=== PATIENT | female | born 1950 | race Caucasian/White ===

== ENCOUNTER → 2016-09-12 | Outpatient (CLI) | payer OTHER ==
[~2016-09-12] MED LIST: ASCA500 PO; ASPCH81X PO; ATOR-24 PO; CALC-485 PEG; CYAN500T PO; ESCI1TAB10 PO; LEVO125T72 PO; LOSA100T26 PO; MELO15TA4 PO; MULT-506 PO; PANT40TA PO; POTA10CA28 PO; RANI300T2 PO; [UNRECOGNIZED DRUG - CODE] PO
[2016-09-12 18:21] LABS: BASO % 0.8 %; BASO ABS # 0.06 K/uL (0-0.2); COMPLETE YES; EOS % 1.7 %; HEMATOCRIT 36.3 % (37-47); IG% 0.1 %; LYMPH ABS # 1.79 K/uL (1.2-3.4); MEAN CELL VOLUME 82.9 fL (80-100); MEAN CORPUSCULAR HEMOGLOBIN 27.2 pg (25-34); MEAN CORPUSCULAR HGB CONC 32.8 g/dl (32-36); MEAN PLATELET VOLUME 10.5 fL (7.4-10.4); MONO % 9.9 %; NEUT % 62.5 %; PLATELET COUNT 328 K/uL (130-400); RED BLOOD COUNT 4.38 M/uL (4.2-5.4); WHITE BLOOD COUNT 7.17 K/uL (4.8-10.8)
== END | disposition home or self-care (01) ==
LOC: C.LABMFLN 09:39
PROVIDERS: ATTEND Family Medicine
DX: J02.9 Acute pharyngitis, unspecified (principal); R53.83 Other fatigue

== ENCOUNTER 2016-09-22 10:25 | Emergency (ER) | payer OTHER ==
[~2016-09-22] VITALS: Ht 157.5 cm; Wt 86.0 kg
[2016-09-22 10:27] VITALS: TEMP 36.5; Ht 157.5 cm; Wt 86.0 kg
--- NOTE | 2016-09-22 10:55 | EMERGENCY ROOM VISIT NOTE ---
History Report prepared by Shannonibpaolo: Sindy Jessica Under the Supervision of: Dr. Gonzalo Jones D.O. First contact with patient: 10:33 Chief Complaint: EYE ASSESSMENT Stated Complaint: EYE PAIN History of Present Illness The patient is a 66 year old female who presents to the Emergency Room with complaints of persistent discomfort in the right eye which started yesterday afternoon. Last night, she noticed that the outer half of her eye was red and this morning, her whole eye was red. There is also a bump which she is concerned about. She denies doing any heavy lifting. She does not recall sneezing or coughing. She denies any vision changes. She is on medications for hypertension. Source of History: patient Onset: yesterday afternoon Position: eye (right) Timing: other (persistent) Note: Pt denies changes in vision. Review of Systems See HPI for pertinent positives & negatives. A total of 10 systems reviewed and were otherwise negative. Past Medical & Surgical Medical Problems: (1) Hypertension Family History Patient reports no known family medical history. Social History Smoking Status: Former Smoker Marital Status: in relationship Housing Status: lives with family Physical Exam Vital Signs Date Time Temp Pulse Resp B/P Pulse Ox O2 Delivery O2 Flow Rate FiO2 09/22/16 10:27 36.5 70 18 163/78 95 Room Air Physical Exam CONSTITUTIONAL/VITAL SIGNS: Reviewed / noted above. GENERAL: Non-toxic in appearance. INTEGUMENTARY: Warm, dry, and [place]. HEAD: Normocephalic. EYES: Redness of the sclera with a tiny clot at the ten o'clock position of the sclera consistent with BRICE. ENT/OROPHARYNX: clear and moist. LYMPHADENOPATHY/NECK: Is supple without lymphadenopathy or meningismus. RESPIRATORY: Lungs clear and equal. CARDIOVASCULAR: Regular rate and rhythm. GI/ABDOMEN: Soft and nontender. No organomegaly or pulsatile mass. No rebound or guarding. Normal bowel sounds. EXTREMITIES: Warm and well perfused. BACK: No CVA tenderness. NEUROLOGICAL: Intact without focal deficits. PSYCHIATRIC: normal affect. MUSCULOSKELETAL: Normally developed with good muscle tone. Medical Decision & Procedures ED Course 1034: Previous medical records were reviewed. The patient was evaluated in room B8. A complete history and physical examination was performed. 1048: I reevaluated the patient. She is resting comfortably. I discussed the treatment plan with her. She verbalized understanding and agreement. She will be discharged home. Medical Decision Differential diagnoses: infection, trauma, spontaneous bleed. This is a 66-year-old female who presents to the ED with a chief complaint of redness in the right eye. The patient states that she noticed it yesterday. It was initially on the right/temporal region and subsequently moved diffusely to the entire eye this morning. She denies any specific trauma or injury. She states that she was seen at urgent care and sent here. Her blood pressure at urgent care was 130 systolic. It was a little higher here. She states that she does take medication for blood pressure. He states that she has been packing for a trip but otherwise does not recall any specific activity that may be increased pressure in her eye to cause a blood vessel to break. Her exam reveals findings consistent with that of a subacute conjunctival hemorrhage. There is a small clot /vessel in the 11 o'clock position of the sclera that appears to be the origination of the bleed. X-ray of the motion is intact. There is no abnormalities with regards to the anterior chamber or iris. Her vision is normal. The patient reports mild discomfort on the lateral aspect of the sclera. The patient is felt to have the subconjunctival hemorrhage. She was told to follow-up with her data center solutions architect for recheck. She is felt to be stable for discharge. Impression Primary Impression: Subconjunctival hemorrhage of right eye Scribe Attestation The scribe's documentation has been prepared under my direction and personally reviewed by me in its entirety. I confirm that the note above accurately reflects all work, treatment, procedures, and medical decision making performed by me. Departure Information Dispostion Home / Self-Care Referrals Radames Toledo M.D. (PCP) Patient Instructions My [facility], Subconjunctival Hemorrhage Additional Instructions Follow-up with your inspector eyeglass frames for recheck when you return to [facility]. Return for any concerns or worsening.
[2016-09-22 11:03] VITALS: BP 183/96; PULSE 58; O2SAT 96
[2016-09-22] MEDS ORDERED: PANT40TA PO (11:09)
[2016-09-22] MEDS ORDERED: POTA10CA28 PO (11:09)
[2016-09-22] MEDS ORDERED: ESCI1TAB10 PO (11:09)
[2016-09-22] MEDS ORDERED: CYAN500T PO (11:09)
[2016-09-22] MEDS ORDERED: ASCA500 PO (11:09)
[2016-09-22] MEDS ORDERED: LEVO125T72 PO (11:09)
[2016-09-22] MEDS ORDERED: LOSA100T26 PO (11:09)
[2016-09-22] MEDS ORDERED: RANI300T2 PO (11:09)
[2016-09-22] MEDS ORDERED: ATOR-24 PO (11:09)
[2016-09-22] MEDS ORDERED: MULT-506 PO (11:09)
[2016-09-22] MEDS ORDERED: CALC-485 PEG (11:09)
[2016-09-22] MEDS ORDERED: ASPCH81X PO (11:10)
[2016-09-22] MEDS ORDERED: MELO15TA4 PO (11:10)
[2016-09-22] MEDS ORDERED: [UNRECOGNIZED DRUG - CODE] PO (11:10)
== END 2016-09-22 11:05 | disposition home or self-care (01) ==
LOC: C.EDB 10:27
DX: H11.31 Conjunctival hemorrhage, right eye (principal); I10 Essential (primary) hypertension; Z87.891 Personal history of nicotine dependence

== ENCOUNTER → 2016-11-19 | Outpatient (CLI) | payer OTHER ==
[~2016-11-19] MED LIST changes: -LOSA100T26 PO; +LOSA100T33 PO
[2016-11-19 14:27] LABS: ALT/SGPT 26 U/L (12-78); AST/SGOT 13 U/L (15-37); BLOOD UREA NITROGEN 31 mg/dl (7-18); CALCIUM 8.6 mg/dl (8.5-10.1); CARBON DIOXIDE 27 mmol/L (21-32); CHLORIDE 104 mmol/L (98-107); GLUCOSE 88 mg/dl (70-99); POTASSIUM 3.8 mmol/L (3.5-5.1); SODIUM 140 mmol/L (136-145)
[2016-11-19 14:30] LABS: CHOLESTEROL 250 mg/dl (0-200); CHOLESTEROL/HDL RATIO 4.1; HDL CHOLESTEROL 61 mg/dl; LDL CHOLESTEROL CALCULATED 154 mg/dl; TRIGLYCERIDES 176 mg/dl (0-150); VERY LOW DENSITY LIPOPROT CALC 35 mg/dl
== END | disposition home or self-care (01) ==
LOC: C.LABMFLN 08:21
PROVIDERS: ATTEND Family Medicine
DX: I10 Essential (primary) hypertension (principal); E78.5 Hyperlipidemia, unspecified; E03.9 Hypothyroidism, unspecified; E87.6 Hypokalemia; D64.9 Anemia, unspecified; M17.11 Unilateral primary osteoarthritis, right knee

== ENCOUNTER → 2017-08-07 | Outpatient (CLI) | payer OTHER | END | disposition home or self-care (01) | LOC: C.LABMFLN 10:14 | PROVIDERS: ATTEND Family Medicine | DX: R39.15 Urgency of urination (principal) ==

== ENCOUNTER → 2017-09-09 | Outpatient (CLI) | payer OTHER ==
[~2017-09-09] MED LIST changes: +MELO-84 PO; -MELO15TA4 PO
[2017-09-09 12:30] LABS: BASO % 0.6 %; BASO ABS # 0.04 K/uL (0-0.2); EOS % 2.6 %; EOS ABS # 0.16 K/uL (0-0.5); HEMATOCRIT 37.6 % (37-47); HEMOGLOBIN 12.3 g/dL (12.0-16.0); IG# 0.01 K/uL (0.00-0.02); LYMPH % 31.7 %; LYMPH ABS # 1.99 K/uL (1.2-3.4); MEAN CELL VOLUME 87.4 fL (80-100); MEAN CORPUSCULAR HEMOGLOBIN 28.6 pg (25-34); MEAN CORPUSCULAR HGB CONC 32.7 g/dl (32-36); MEAN PLATELET VOLUME 10.1 fL (7.4-10.4); MONO % 8.8 %; MONO ABS # 0.55 K/uL (0.11-0.59); NEUT % 56.1 %; NEUT ABS # 3.52 K/uL (1.4-6.5); PLATELET COUNT 297 K/uL (130-400); RED CELL DISTRIBUTION WIDTH CV 14.1 % (11.5-14.5); RED CELL DISTRIBUTION WIDTH SD 45.4 fL (36.4-46.3); WHITE BLOOD COUNT 6.27 K/uL (4.8-10.8)
[2017-09-09 13:14] LABS: ALBUMIN 3.4 gm/dl (3.4-5.0); BLOOD UREA NITROGEN 19 mg/dl (7-18); CALCIUM 8.4 mg/dl (8.5-10.1); CARBON DIOXIDE 32 mmol/L (21-32); CHOLESTEROL 246 mg/dl (0-200); CREATININE 1.02 mg/dl (0.60-1.20); GLUCOSE 93 mg/dl (70-99); POTASSIUM 3.1 mmol/L (3.5-5.1); SODIUM 138 mmol/L (136-145)
[2017-09-09 13:26] LABS: ALKALINE PHOSPHATASE 121 U/L (45-117); ALT/SGPT 29 U/L (12-78); AST/SGOT 17 U/L (15-37); LDL CHOLESTEROL CALCULATED 166 mg/dl; TOTAL PROTEIN 6.8 gm/dl (6.4-8.2)
== END | disposition home or self-care (01) ==
LOC: C.LABMFLN 10:01
PROVIDERS: ATTEND Family Medicine
DX: I10 Essential (primary) hypertension (principal); E78.5 Hyperlipidemia, unspecified; E03.9 Hypothyroidism, unspecified; E53.8 Deficiency of other specified B group vitamins; D64.9 Anemia, unspecified; R41.3 Other amnesia

== ENCOUNTER → 2017-10-04 | Outpatient (CLI) | payer OTHER | END | disposition home or self-care (01) | LOC: C.LABMFLN 14:46 | PROVIDERS: ATTEND Family Medicine | DX: E87.6 Hypokalemia (principal) ==

== ENCOUNTER → 2017-11-13 | Outpatient (CLI) | payer OTHER ==
[2017-11-13 13:16] LABS: POTASSIUM 3.3 mmol/L (3.5-5.1)
== END | disposition home or self-care (01) ==
LOC: C.LABMFLN 09:49
PROVIDERS: ATTEND Family Medicine
DX: E87.6 Hypokalemia (principal); E03.9 Hypothyroidism, unspecified

== ENCOUNTER → 2017-11-25 | Outpatient (CLI) | payer OTHER ==
[2017-11-25 18:28] LABS: BLOOD UREA NITROGEN 18 mg/dl (7-18); CREATININE 0.93 mg/dl (0.60-1.20); POTASSIUM 3.4 mmol/L (3.5-5.1)
== END | disposition home or self-care (01) ==
LOC: C.LABMFLN 11:01
PROVIDERS: ATTEND Family Medicine
DX: E87.6 Hypokalemia (principal); H93.19 Tinnitus, unspecified ear; H91.90 Unspecified hearing loss, unspecified ear

== ENCOUNTER → 2018-01-31 | Outpatient (CLI) | payer OTHER | END | disposition home or self-care (01) | LOC: C.LABMFLN 09:48 | PROVIDERS: ATTEND Family Medicine | DX: E87.6 Hypokalemia (principal) ==

== ENCOUNTER 2025-01-13 19:13 | Observation (INO) ==
[2025-01-13] MEDS ORDERED: NITROGLYCERIN SL 0.4 MG/TAB TAB SL PRN (21:04)
[2025-01-13] MEDS ORDERED: ACETAMINOPHEN 325 MG TAB PO PRN (21:04)
[2025-01-13] MEDS ORDERED: ONDANSETRON INJ 2 MG/ML 2 ML VIAL IV PRN (21:04)
--- NOTE | 2025-01-13 21:31 | History & Physical Report ---
Date of Service January 13, 2025 Assessment & Plan (1) NSTEMI (non-ST elevated myocardial infarction): (2) HTN (hypertension) with goal to be determined: (3) Hyperlipidemia: (4) Hypothyroidism: (5) Depression: Plan Gerri is a 74-year-old female with a past medical history of hypertension, HLD, nontuberculosis mycobacterial infection, GERD, depression, hypertension, vitamin B12 deficiency and hypothyroidism who presents to [facility] after transfer from [facility] for concerns of non-STEMI. #NSTEMI Continue heparin drip pending Anti-Xa level Trend troponin every 6 hours Consult cardiologyI spoke to Dr. Everett and Dr. Merritt prior to excepting transfer Keep n.p.o. EKG upon arrival A.m. CBC, BMP and fasting lipid panel #HTN | HLD Hold losartan-HCTZ and K supplementation pending labs Continue statin and metoprolol #GERD Continue protonix and PPI BID #Mental Health Continue Wellbutrin #Hypothryoid Was told to change her dose from 150 to 137 but has not gone to pick it up yet will continue 137mcq dose while inpatient Dispo: admit to PCU DVT proh: Heparin gtt Admission and Anticipated Discharge Date Admission Date: January 13, 2025 History of Present Illness Chief Complaint: chest pain Primary Care Provider: Radames Toledo MD Gerri is a 74-year-old female with a past medical history of hypertension, HLD, nontuberculosis mycobacterial infection, GERD, depression, hypertension, vitamin B12 deficiency and hypothyroidism who presents to [facility] after transfer from [facility] for concerns of non-STEMI. Chest pain started around 1:00 in the afternoon while she was vacuuming. Her pain radiated to the jaw at this time. Did also feel diaphoretic and near syncopal. She sat down thinking the chest pain would go away and it did not and at that time she called the ambulance. Was given aspirin 324 mg and route and chest pain improved. Remained chest pain-free in the outside ER. Per outside ER provider, initial EKG was sinus bradycardia at a rate of 55 bpm, no ST changes. Initial high-sensitivity Trope was 9 then 22 then 26. They reached out to the rail signal worker who recommended transfer for cardiac catheterization and patient was started on a heparin drip. Upon arrival to [facility], she remains chest pain free. Does report that she had a similar episode about 2 weeks ago when she was trying to get out of her truck. She was at her [facility] soft[facility] tournament and did not want to seek medical care in the facility. Symptoms lasted for about 20 minutes. Denies associated shortness of breath. She was recently getting treated for nontuberculosis mycobacterial infection but finished those 3 antibiotics a few weeks ago. She had a lot of sickness with these medications and decreased activity. Allergies Allergy/AdvReac Type Severity Reaction Status Date / Time sulfamethoxazole Allergy Intermediate HIVES Verified 01/11/25 11:02 trimethoprim Allergy Intermediate HIVES Verified 01/11/25 11:02 Home Medications Medication Instructions Recorded Confirmed Type ascorbate calcium (vitamin C) 500 500 mg PO QPM 02/01/19 01/11/25 History mg capsule fluticasone propionate 50 2 spray intranasal DAILY PRN nasal 05/10/20 01/13/25 Rx mcg/actuation nasal congestion #15.8 mL spray,suspension meclizine 25 mg tablet 25 mg PO TID PRN dizziness #90 tabs 10/28/20 01/13/25 Rx albuterol sulfate 90 mcg/actuation 2 puff inhalation QID PRN 09/11/21 01/11/25 Rx aerosol inhaler (ProAir HFA) shortness of breath or wheezing #8.5 grams aspirin 81 mg capsule 81 mg PO QPM 09/04/23 01/13/25 History calcium 500 mg (as 1 tab PO QPM 09/04/23 01/13/25 History carbonate)-vitamin D3 10 mcg (400 unit) tablet echinacea 500 mg capsule 500 mg PO QPM 09/04/23 01/11/25 History mecobalamin (vitamin B12) 1,000 1,000 mcg sublingual QPM 09/04/23 01/13/25 History mcg disintegrating tablet,sublingual multivitamin (Daily Multi-Vitamin 1 tab PO QPM 09/04/23 01/13/25 History tablet) atorvastatin 80 mg tablet 80 mg PO QPM #90 tabs 11/27/23 01/13/25 Rx ondansetron 4 mg disintegrating 4 mg PO Q8H PRN nausea and 03/27/24 01/13/25 Rx tablet vomiting #14 tabs bupropion HCl 150 mg 24 hr tablet, 150 mg PO QAM #90 tabs 08/12/24 01/13/25 Rx extended release bupropion HCl 300 mg 24 hr tablet, 300 mg PO QAM #90 tabs 08/12/24 01/13/25 Rx extended release duloxetine 60 mg capsule,delayed 60 mg PO BID #180 caps 11/13/24 01/13/25 Rx release pantoprazole 40 mg tablet,delayed 40 mg PO BID #180 tabs 12/16/24 01/13/25 Rx release famotidine 40 mg tablet 40 mg PO BID #180 tabs 01/01/25 01/13/25 Rx levothyroxine 137 mcg tablet 137 mcg PO DAILY #90 tabs 01/13/25 01/13/25 Rx amlodipine 5 mg tablet 5 mg PO DAILY #30 tabs 01/14/25 Rx ezetimibe 10 mg tablet (Zetia) 10 mg PO DAILY #30 tabs 01/14/25 Rx losartan 100 mg tablet 100 mg PO DAILY #30 tabs 01/14/25 Rx metoprolol succinate 25 mg 12.5 mg (1/2 x 25 mg) PO QAM #90 01/14/25 01/13/25 Rx tablet,extended release 24 hr tabs nitroglycerin 0.4 mg sublingual 0.4 mg sublingual Q5M PRN Chest 01/14/25 Rx tablet (Nitrostat) Pain #30 tabs Past Med/Surg History Problem List (Updated 01/13/25 @ 21:42 by Lillie Yuen PA-C) NSTEMI (non-ST elevated myocardial infarction) Nontuberculous mycobacterial infection Encounter for pre-operative examination Multiple pulmonary nodules Bronchiectasis Abnormal CT scan of lung Lung nodule Low back pain Asymptomatic age-related postmenopausal state Anemia Medicare annual wellness visit, subsequent Lower abdominal pain Abnormal ultrasound of abdomen Rib pain on right side Epigastric abdominal pain per pt is intermittent "I get a lot of heartburn" Atypical chest pain pt denies any chest pain at this time--resolved Benign essential hypertension Intermittent palpitations Vitamin B12 deficiency (Acute) Osteoarthritis of right knee (Acute) Menieres disease (Acute) Hypothyroidism (Acute) Hyperlipidemia (Acute) HTN (hypertension) with goal to be determined (Acute) Gastroesophageal reflux disease with ulceration (Acute) Depression (Acute) Medical History Shortness of breath on exertion Hearing deficit Lower abdominal pain Multiple pulmonary nodules Abnormal ultrasound of abdomen Rib pain on right side Epigastric abdominal pain Benign essential hypertension Intermittent palpitations Depression Gastroesophageal reflux disease with ulceration HTN (hypertension) with goal to be determined Hyperlipidemia Hypothyroidism Menieres disease Osteoarthritis of right knee Vitamin B12 deficiency Surgical History History of dilatation and curettage History of esophagogastroduodenoscopy (EGD) History of tooth extraction H/O colonoscopy History of tubal ligation History of hysterectomy History of carpal tunnel release History of cardiac cath Family History Father Prostate cancer Heart disease Kidney disease Hypertension Parkinson disease Mother Diabetes Stroke Family/Other Family history of reaction to anesthesia Other Bladder cancer Social History Smoking Status: Former smoker Tobacco Type: Cigarettes Age Started Using Tobacco: 18; Age Quit Using Tobacco: 34; packs per day: 1; Second Hand Exposure: No; Do You Dip or Chew Tobacco: No; Hx Alcohol Use: Yes Alcohol type: wine Hx Substance Use: No Preferred Language: Latvian Communication Ability: Effective Visual Impairment: No Limitations Hearing Ability: Use of Hearing Aid Day Care Center Director Required: No Beliefs That Will Affect Care: None marital status: Current Living Situation: Spouse Feels Safe at Home: Yes Childhood Exposure to Second-Hand Smoke: Yes Seatbelt Use: always Sunscreen Use: Yes Assistive Devices: None Review of Systems Review of Systems: All systems reviewed & are unremarkable except as noted in Subjective Physical Exam Physical Exam: General: NAD, VS as above Resp: normal respiratory effort, lungs clear to auscultation CV: RRR, no murmur, Abd: normal bowel sounds, non tender, no hepatosplenomegaly Extremities: Moves all extremities, no pitting LE edema Neuro: A&O x3, Skin: intact, no lesions noted Supervising Physician Co-Signing Physician Notes During face to face encounter, I obtained a history and physical examination, discussed plan of care with patient and answered any questions. I discussed plan of care with FRANCHESCA Yuen. I reviewed above note and agree with it except for the following: Patient will be admitted for concern of a NSTEMI. Patient has some atypical features, may require cardiac cath. Will consult cards. will trend troponin PG Care Time/CCT Total # of Minutes Spent Total Time Spent with Patient: Total time spent is greater than 50% in coordination of care (as documented) at patient's floor/unit and/or counseling patient: Coding Level of Care Code 97352 INT INP/OBS CARE 3/75MIN Diagnoses NSTEMI (non-ST elevated myocardial infarction) I21.4 HTN (hypertension) with goal to be determined I10 Hyperlipidemia E78.5 Hypothyroidism E03.9 Depression F32.9
[2025-01-13 21:49] LABS: Hematocrit (blood only) 34.8 % (37.0-47.0); Hemoglobin 11.8 g/dl (12.0-16.0); Immature Granulocytes # (auto) 0.01 K/uL (0.01-0.20); Immature Granulocytes % (auto) 0.2 %; Mean Corpuscular Hemoglobin 28.8 pg (25.0-34.0); Mean Corpuscular Volume 84.9 fL (80.0-100.0); Platelet Count 209 K/uL (130-400); RDW Standard Deviation 42.5 fL (36.4-46.3); Red Blood Count 4.10 M/uL (4.20-5.40); White Blood Count 5.81 K/ul (4.8-10.8)
[2025-01-13 22:06] LABS: Anion Gap 7.0 (3-11); Blood Urea Nitrogen 18.0 mg/dl (6-23); Calcium 8.7 mg/dl (8.6-10.3); Carbon Dioxide 27.0 mmol/L (21-32); Chloride 105.0 mmol/L (98-107); Creatinine Clr Calc Pharmacy 50.4 ml/min; Glucose 88.0 mg/dl (70-99(Fasting)); Magnesium 2.0 mg/dl (1.7-2.4); Potassium 3.6 mmol/L (3.5-5.1); Sodium 139.0 mmol/L (136-145)
[2025-01-13 22:12] LABS: ANTI-Xa, UFH(UnfractionatedHep 0.53 IU/ml (0.3-0.7)
[2025-01-13] MEDS: HEPARIN 25000 UNIT/500 ML D5W 25,000 UNITS/500 ML BAG IV SCH (22:12)
[2025-01-13] MEDS: ATORVASTATIN 40 MG TAB PO SCH (22:13)
[2025-01-13] MEDS: FAMOTIDINE 40 MG TABLET PO SCH (22:13)
[2025-01-13] MEDS: Heparin IV Adult Wt-Based Standard *NO* INITIAL Bolus Protocol IV SCH (22:13)
[2025-01-14] MEDS: LEVOTHYROXINE SODIUM 137 MCG TABLET PO SCH (06:14)
[2025-01-14 06:33] LABS: Hematocrit (blood only) 33.6 % (37.0-47.0); Hemoglobin 11.2 g/dl (12.0-16.0); Mean Corpuscular Hemoglobin 28.8 pg (25.0-34.0); Mean Corpuscular Volume 86.4 fL (80.0-100.0); Platelet Count 204 K/uL (130-400); RDW Standard Deviation 43.0 fL (36.4-46.3); Red Blood Count 3.89 M/uL (4.20-5.40); White Blood Count 5.83 K/ul (4.8-10.8)
[2025-01-14 06:55] LABS: Anion Gap 4.0 (3-11); Blood Urea Nitrogen 19.0 mg/dl (6-23); Calcium 8.5 mg/dl (8.6-10.3); Carbon Dioxide 31.0 mmol/L (21-32); Chloride 106.0 mmol/L (98-107); Cholesterol 175.0 mg/dl (0-200); Creatinine Clr Calc Pharmacy 50.0 ml/min; Glucose 102.0 mg/dl (70-99(Fasting)); HDL Cholesterol 62.0 mg/dl; Potassium 3.7 mmol/L (3.5-5.1); Sodium 141.0 mmol/L (136-145); Triglycerides 47.0 mg/dl (0-150)
[2025-01-14 07:09] LABS: ANTI-Xa, UFH(UnfractionatedHep 0.57 IU/ml (0.3-0.7)
[2025-01-14 07:43] VITALS: TEMP 98.2
--- NOTE | 2025-01-14 09:46 | Pre Anesthesia Assessment ---
Date of Service January 14, 2025 Pre Sedation Assessment Vital Signs Temp Pulse Pulse Pulse Resp BP Pulse Ox 01/14/25 07:42 98.2 F 57 L 18 120/73 99 01/14/25 03:04 97.7 F 59 L 16 113/66 98 01/13/25 21:57 60 01/13/25 21:27 59 L 01/13/25 21:00 01/13/25 21:00 99.5 F 62 16 171/88 H 95 O2 Del Method 01/14/25 07:42 Room Air 01/14/25 03:04 Room Air 01/13/25 21:57 01/13/25 21:27 01/13/25 21:00 Room Air 01/13/25 21:00 Room Air Cardiovascular + regular rate Respiratory + respiratory effort normal Pre-Sedation Airway Assessment Smoking Status: Former smoker Hx Sleep Apnea: No Hx Difficult Intubation: No Short, Thick Neck: No Thyromental Distance: > or= 3.5 Finger Breadths Oral Cavity: + Dental Abnormalities Mallampati Class: II ASA: ASA3 Procedure Planning Contraindications for Sedation: none Current Medications Reviewed: Yes Notes The planned sedation has been discussed with the patient. Informed Consent was obtained. I have identified the patient, determined the appropriateness of sedation and have assessed the patient immediately prior to the procedure. All medicine(s) and interventions are by my order.
[2025-01-14] MEDS: MIDAZOLAM HCL 1 MG/ML 2ML VIAL ONE (10:25)
[2025-01-14] MEDS: IODIXANOL (VISIPAQUE) 320 MG/ML 100ML IV ONE (10:26)
[2025-01-14] MEDS: OPTIRAY 350 ONE (10:26)
[2025-01-14] MEDS: HEPARIN (PORCINE) 1000 UNIT/ML 10 ML (CATH LAB USE ONLY) ONE (10:26)
[2025-01-14] MEDS: NITROGLYCERIN/D5W 100MCG/ML 20ML SYR ONE (10:27)
[2025-01-14] MEDS: niCARdipine 2,000 MCG/20 ML SYR ONE (10:27)
--- NOTE | 2025-01-14 10:33 | Post Anesthesia Assessment ---
Date of Service January 14, 2025 Post Sedation Assessment Vital Signs Temp Pulse Pulse Pulse Resp BP BP 01/14/25 09:48 59 L 16 128/53 L 01/14/25 07:42 98.2 F 57 L 18 120/73 01/14/25 03:04 97.7 F 59 L 16 113/66 01/13/25 21:57 60 01/13/25 21:27 59 L 01/13/25 21:00 01/13/25 21:00 99.5 F 62 16 171/88 H Pulse Ox O2 Del Method 01/14/25 09:48 96 Room Air 01/14/25 07:42 99 Room Air 01/14/25 03:04 98 Room Air 01/13/25 21:57 01/13/25 21:27 01/13/25 21:00 Room Air 01/13/25 21:00 95 Room Air Recovery Score Activity: Moves 4 extremities Respiration: Deep Breath/Cough Circulation: +/-20% PreAnes Value Consciousness: Fully Awake Oxygen Saturation: O2 needed for >90% Discharge Sedation Level of Care: Fast Track Phase II Post Sedation Plan On clinical assessment, the patient appears to have tolerated the sedation without complications. Patient is recovering as anticipated. Patient will continue to be monitored by nursing and may be discharged when sedation discharge criteria are met per below protocol. Upon Completions of procedure up to 15 minutes continue every 5 minute vital signs and the P.A.R. score; then discharge to a Phase I or Fast Track to Phase II per the following guidelines: * Discharge Patient to appropriate Phase II area if PAR is 8 or greater or return to pre- procedure baseline. The post - procedure orders will be as directed. * If PAR score is less than 8 or not return to pre-procedure baseline then patient will follow Phase I monitoring till PAR is reached for Phase II. The Phase I may be done in procedure room or may call to secure a Phase I area. * If naloxone or flumazenil are used for reversal, hold in Phase I for continued monitoring from when last reversal dose was given for a minimum of 60 minutes or longer pending the nurse and/or physician discretion of patient condition before discharge to Phase II. Please call the Sedation Physician to re-evaluate and complete post-note for discharge to Phase II area. Do NOT discharge from procedure sedation or Phase 1 until post- sedation evaluation note is complete by procedure /sedation MD Sedation Discharge Instructions to be given to the patient at discharge to home.
--- NOTE | 2025-01-14 10:48 | Cardiac Catheterization ---
[facility] Data: Project Construction Manager Cardiac Status Clinical evaluation leading to the procedure CAD Presenation: Non STEMI Diagnostic Physicians Name: Pedro Luis Merritt MD Closure Device Recommendations: Medical Therapy and/or Counseling Cardiac Cath Procedure Full Procedure Date January 14, 2025 Pre-Procedure Diagnosis Pre-Procedure Diagnosis: Non STEMI AUC Score AUC Score: 7 Post-Procedure Diagnosis Post-Procedure Diagnosis: Mild CAD Procedure(s) Performed Procedure(s) Performed: Coronary Angiography, Left Heart Cath and Ultrasound Guided Vascular Access Signal Repairer Pedro Luis Merritt MD [employer] Roofer(s) Marisa Estimated Blood Loss Estimated Blood Loss: 5 Medication(s) Medication(s): Fentanyl, Heparin, Lidocaine 1%, Nicardipine, Nitroglycerin and Versed Summary of Findings Indication: Chest pain, minimally elevated troponin Access: 6 Fr slender right radial artery under ultrasound guidance Catheters: [place] Findings: LM -normal caliber, no significant disease LAD -small caliber, proximal luminal regularities. Distal vessel very small and tapers prior to apex. D1 without significant disease. Circumflex -small caliber, 30-40% ostial stenosis, remainder of small AV groove circumflex without significant disease. High OM1 ostium not well-visualized but appears to have 40% ostial stenosis. Midportion of bifurcating OM1 with 20 to 30% disease. RCA -dominant, large caliber, 20-30% mid segment stenosis, distal vessel with luminal irregularities. RPDA, right posterior lateral branch without significant disease. LVEDP -21 Arterial Closure: TR band Summary: 1. Mild to moderate nonobstructive coronary artery disease - 30-40% ostial small circumflex, 40% high OM1 20-30% mid RCA 2. Elevated intracardiac filling pressure (LVEDP 21) Recommendations: No acute or high risk findings to explain patient's recent symptoms. May have some component of vasospastic versus microvascular angina contributing to [place] Check echocardiogram Continued ASCVD risk factor modification Consider trial of nitrates/CCB. Hemodynamics Rest Ao:: 155/68/103 Final Ao: 187/81/126 LV: 183/21 Recommendations Recommendations: Medical Therapy and/or Counseling Radiation Exposure (mGy) 487 Contrast (mls) 25 Anesthesia Moderate [id number] Procedural Complication(s) None Disposition Project Construction Manager Holding/Recovery I attest to the content of the Intraoperative Record and any orders documented therein. Any exceptions are noted below. [facility] Card Cath Procedure Codes Cardiac Catheterization Procedure 1: Cardiovascular Cath Procedures: 09799 Coronaries and LHC (+/-LV) Therapeutic Services & Ancillary Procedure 1: Cardiovascular Tx and Anc Procedures: 71692 Ultrasonic Guidance Vascular Access Moderate Sedation Procedure 1: Sedation/Anesthesia: 81655 Mod Sedation by the same physician;Init15 Min Child Age 5 & Up PG Care Time/CCT Total # of Minutes Spent Total Time Spent with Patient: Total time spent is greater than 50% in coordination of care (as documented) at patient's floor/unit and/or counseling patient:
--- NOTE | 2025-01-14 11:08 | Cardiology Consultation ---
Date of Consultation January 14, 2025 Assessment & Plan (1) NSTEMI (non-ST elevated myocardial infarction): [place] Mild to moderate nonobstructive CAD 2. Hypertension 3. Dyslipidemia 4. Anemia 5. Prior palpitations, blocked PACs Cardiac catheterization today showed no high risk CAD. Does have mild to moderate disease involving ostial circumflex/high OM1. 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 Also has mild elevated LVEDP and notable LVH on echo. Possibly some contribution of diastolic dysfunction contributing to symptoms. No findings on echo to suggest Takotsubo/myocarditis. Recommend trial of coronary vasodilator/additional BP control with calcium channel chitra, suggest low dose amlodipine. If orthostatic symptoms as an outpatient could also consider trial of long-acting nitrate. Would also send home with PRN sublingual nitroglycerin. Otherwise continue ASCVD risk factor modification. With mild to moderate CAD would consider adding Zetia to target LDL <70. No other changes to prior meds. From a cardiac standpoint okay with discharge later today after TR band removed. Follow-up with cardiology in 3 to 4 weeks. History of Present Illness Attending Physician: William Rizo MD History of Present Illness Mrs. Cain is a very pleasant 74-year-old woman seen today in the setting of 2 episodes of recent chest pain and minimally elevated troponin. Minimal prior cardiac history. Reportedly underwent cardiac catheterization years ago at [facility] which was unremarkable. She was seen once by Dr. Weiss in 2020 for palpitations. Holter monitor at that time showed frequent PACs. Minimal symptom burden and continued on metoprolol. She presented to [facility] ED yesterday after developed acute onset chest pain while lying sleeping approximately 1300. Pain lasted for about 10 minutes, resolved after taking aspirin. Has been chest pain-free since that time. In the ED ECG unremarkable, HS TropI trended up to 20s and referral for cardiac catheterization recommended. Overnight maintained on heparin infusion, no recurrent chest pain, hemodynamically stable. Telemetry showed sinus rhythm with occasional blocked PACs. HS TropI 27 initially down to 11. Of note did have prior episode of chest pain in 2 weeks ago while outside at a softball tournament. With that her states that had some word finding difficulties. Underwent cardiac catheterization this morning which showed mild to moderate nonobstructive disease (40% ostial circumflex/high OM1, 30% mid RCA). LVEDP slightly elevated at 21. Also had echocardiogram which showed EF 65% with no regional wall motion abnormalities, had mild LVH, no significant valvular abnormalities. Past medical history: Prior nontuberculosis mycobacterial infection, hypertension, dyslipidemia, GERD, anemia, depression, hypothyroidism. Family history: Father had diagnosis of microvascular dysfunction and reported OR in his 30s. Social history: Retired. Lives with . Brief, remote smoking. Allergies Allergy/AdvReac Type Severity Reaction Status Date / Time sulfamethoxazole Allergy Intermediate HIVES Verified 01/11/25 11:02 trimethoprim Allergy Intermediate HIVES Verified 01/11/25 11:02 Home Medications Medication Instructions Recorded Confirmed Type ascorbate calcium (vitamin C) 500 500 mg PO QPM 02/01/19 01/11/25 History mg capsule fluticasone propionate 50 2 spray intranasal DAILY PRN nasal 05/10/20 01/13/25 Rx mcg/actuation nasal congestion #15.8 mL spray,suspension meclizine 25 mg tablet 25 mg PO TID PRN dizziness #90 tabs 10/28/20 01/13/25 Rx albuterol sulfate 90 mcg/actuation 2 puff inhalation QID PRN 09/11/21 01/11/25 Rx aerosol inhaler (ProAir HFA) shortness of breath or wheezing #8.5 grams aspirin 81 mg capsule 81 mg PO QPM 09/04/23 01/13/25 History calcium 500 mg (as 1 tab PO QPM 09/04/23 01/13/25 History carbonate)-vitamin D3 10 mcg (400 unit) tablet echinacea 500 mg capsule 500 mg PO QPM 09/04/23 01/11/25 History mecobalamin (vitamin B12) 1,000 1,000 mcg sublingual QPM 09/04/23 01/13/25 History mcg disintegrating tablet,sublingual multivitamin (Daily Multi-Vitamin 1 tab PO QPM 09/04/23 01/13/25 History tablet) atorvastatin 80 mg tablet 80 mg PO QPM #90 tabs 11/27/23 01/13/25 Rx ondansetron 4 mg disintegrating 4 mg PO Q8H PRN nausea and 03/27/24 01/13/25 Rx tablet vomiting #14 tabs bupropion HCl 150 mg 24 hr tablet, 150 mg PO QAM #90 tabs 08/12/24 01/13/25 Rx extended release bupropion HCl 300 mg 24 hr tablet, 300 mg PO QAM #90 tabs 08/12/24 01/13/25 Rx extended release metoprolol succinate 25 mg 25 mg PO QAM #90 tabs 08/12/24 01/13/25 Rx tablet,extended release 24 hr losartan 100 1 tab PO QAM #90 tabs 09/11/24 01/13/25 Rx mg-hydrochlorothiazide 25 mg tablet potassium chloride 10 mEq 20 meq (2 x 10 mEq) PO BID #360 11/05/24 01/13/25 Rx tablet,extended release (Klor-Con) tabs duloxetine 60 mg capsule,delayed 60 mg PO BID #180 caps 11/13/24 01/13/25 Rx release pantoprazole 40 mg tablet,delayed 40 mg PO BID #180 tabs 12/16/24 01/13/25 Rx release famotidine 40 mg tablet 40 mg PO BID #180 tabs 01/01/25 01/13/25 Rx levothyroxine 137 mcg tablet 137 mcg PO DAILY #90 tabs 01/13/25 01/13/25 Rx trazodone 100 mg tablet 200 mg PO HS PRN insomnia 01/13/25 01/13/25 History Patient History Medical History Shortness of breath on exertion Hearing deficit Lower abdominal pain Multiple pulmonary nodules Abnormal ultrasound of abdomen Rib pain on right side Epigastric abdominal pain Benign essential hypertension Intermittent palpitations Depression Gastroesophageal reflux disease with ulceration HTN (hypertension) with goal to be determined Hyperlipidemia Hypothyroidism Menieres disease Osteoarthritis of right knee Vitamin B12 deficiency Surgical History History of dilatation and curettage History of esophagogastroduodenoscopy (EGD) History of tooth extraction H/O colonoscopy History of tubal ligation History of hysterectomy History of carpal tunnel release History of cardiac cath Family History Father Prostate cancer Heart disease Kidney disease Hypertension Parkinson disease Mother Diabetes Stroke Family/Other Family history of reaction to anesthesia Other Bladder cancer Social History Smoking Status: Former smoker Tobacco Type: Cigarettes Age Started Using Tobacco: 18; Age Quit Using Tobacco: 34; packs per day: 1; Second Hand Exposure: No; Do You Dip or Chew Tobacco: No; Hx Alcohol Use: Yes Alcohol type: wine Hx Substance Use: No Preferred Language: Citizen Of [place] Communication Ability: Effective Visual Impairment: No Limitations Hearing Ability: Use of Hearing Aid [employer] Required: No Beliefs That Will Affect Care: None marital status: Current Living Situation: Spouse Other Information That Helps Us Care for You: No Feels Safe at Home: Yes Safety Concerns: Feels Safe At This Time Childhood Exposure to Second-Hand Smoke: Yes Seatbelt Use: always Sunscreen Use: Yes Assistive Devices: Glasses Review of Systems Review of Systems: All systems reviewed & are unremarkable except as noted in HPI & below Physical Exam Physical Exam: General: Comfortable HEENT: Sclerae anicteric Lungs: Clear to auscultation bilaterally, no crackles or wheezes Cardiac: Regular rate and rhythm, no murmurs. Vascular: 2+ radial, DP pulses. No bruits Abdomen: Soft, nontender Extremities: Well perfused, no peripheral edema Neuro: Nonfocal Psych: Alert orient x3, normal affect and mood Results & Data Vital Signs (Past 12 Hours) Vital Signs Temp Pulse Pulse Resp BP BP Pulse Ox 01/14/25 10:59 56 L 15 155/60 H 96 01/14/25 10:44 57 L 15 146/72 H 97 01/14/25 09:48 59 L 16 128/53 L 96 01/14/25 07:42 98.2 F 57 L 18 120/73 99 01/14/25 03:04 97.7 F 59 L 16 113/66 98 O2 Del Method 01/14/25 10:59 Room Air 01/14/25 10:44 Room Air 01/14/25 09:48 Room Air 01/14/25 07:42 Room Air 01/14/25 03:04 Room Air PG Care Time/CCT Total # of Minutes Spent Total Time Spent with Patient: Total time spent is greater than 50% in coordination of care (as documented) at patient's floor/unit and/or counseling patient: Coding Level of Care Code 81983 INT INP/OBS CARE 2/55MIN Diagnoses NSTEMI (non-ST elevated myocardial infarction) I21.4
[2025-01-14] MEDS: METOPROLOL SUCC 25MG EXT REL TAB PO SCH (11:22)
[2025-01-14 11:37] VITALS: RESP 18; O2SAT 99
[2025-01-14 11:49] VITALS: BP 120/73; PULSE 56
--- NOTE | 2025-01-14 12:42 | XCELERA ---
[id number]
--- NOTE | 2025-01-14 12:59 | Communication Note ---
Date of Service: January 14, 2025 By CMS guidelines, a determination that the admission or continued stay is not medically necessary has been made by a member of the UR committee and a physic tavares for this hospital stay, therefore a Code 44 will be completed and the Inpatient admission will be changed to outpatient.
--- NOTE | 2025-01-14 13:01 | Communication Note ---
Date of Service: January 14, 2025 By CMS guidelines, a determination that the admission or continued stay is not medically necessary has been made by a member of the UR committee and a physi cipriano for this hospital stay, therefore a Code 44 will be completed and the Inpatient admission will be changed to outpatient.
--- NOTE | 2025-01-14 13:15 | Discharge Summary ---
"Discharge Summary Date of Service January 14, 2025 Principal Dx & Hospital Course #1 = Principal Diagnosis (1) NSTEMI (non-ST elevated myocardial infarction): (2) HTN (hypertension) with goal to be determined: (3) Hyperlipidemia: (4) Hypothyroidism: (5) Depression: Plan #NSTEMI | HTN Gerri is a 74-year-old female with a past medical history of hypertension, HLD, nontuberculosis mycobacterial infection, GERD, depression, hypertension, vitamin B12 deficiency and hypothyroidism who presents to [facility] after transfer from [facility] for concerns of non-STEMI. she underwent cardiac catheterization by Dr. Merritt, did not find any major occlusions or large vessel disease. Recommendation for medical management. Patient reports that she has been having episodes of bradycardia at home. Metoprolol decreased to 12.5 mg daily. Added amlodipine 5 mg daily for concerns of vasospasm seen on cardiac catheterization. With concerns for hypotension with new medications, I have discontinued her losartan hydrochlorothiazide and prescribed solely losartan. Echo showed EF 65-70 with no regional wall motion abnormalities but did have grade 2 diastolic dysfunction. Her troponin peaked at 29. She remained chest pain-free throughout the duration of her stay and is stable for discharge home. As needed nitroglycerin also prescribed #HLD Continue statin. with elevated LDL, Zetia added at recommendation of cardiology #GERD Continue protonix and PPI BID #Mental Health Continue Wellbutrin #Hypothryoid Was told to change her dose from 150 to 137 but has not gone to pick it up yet will continue 137mcq dose while inpatient, encouraged to pickler helper new rx Dispo: discharged home today with PCP and cardiology follow-up Family updated at bedside 01/14 Notes For Next Care Provider needs cardiology follow-up Medication Changes From Visit losartanhydrochlorothiazide discontinued Metoprolol decreased to 12.5 mg daily Amlodipine 5 mg added Losartan 100 mg daily added Zetia 10 mg daily added As needed nitroglycerin added Admission HPI Per Admitting Provider Gerri is a 74-year-old female with a past medical history of hypertension, HLD, nontuberculosis mycobacterial infection, GERD, depression, hypertension, vitamin B12 deficiency and hypothyroidism who presents to [facility] after transfer from [facility] for concerns of non-STEMI. Chest pain started around 1:00 in the afternoon while she was vacuuming. Her pain radiated to the jaw at this time. Did also feel diaphoretic and near syncopal. She sat down thinking the chest pain would go away and it did not and at that time she called the ambulance. Was given aspirin 324 mg and route and chest pain improved. Remained chest pain-free in the outside ER. Per outside ER provider, initial EKG was sinus bradycardia at a rate of 55 bpm, no ST changes. Initial high-sensitivity Trope was 9 then 22 then 26. They reached out to the natural resource specialist who recommended transfer for cardiac catheterization and patient was started on a heparin drip. Upon arrival to [facility], she remains chest pain free. Does report that she had a similar episode about 2 weeks ago when she was trying to get out of her truck. She was at her granddaughters softball tournament and did not want to seek medical care in the facility. Symptoms lasted for about 20 minutes. Denies associated shortness of breath. She was recently getting treated for nontuberculosis mycobacterial infection but finished those 3 antibiotics a few weeks ago. She had a lot of sickness with these medications and decreased activity. Discharge Exam General: NAD, VS as above Resp: normal respiratory effort, lungs clear to auscultation CV: RRR, no murmur, Abd: normal bowel sounds, non tender, no hepatosplenomegaly Extremities: Moves all extremities, no pitting LE edema Neuro: A&O x3, Skin: intact, no lesions noted Discharge Plan Discharge Items Patient Disposition: Home - Self-Care Reason For Visit: NSTEMI Discharge Diagnosis: NSTEMI Activity: Resume your previous activity Non-emergency contact: Primary Care Provider and Finishing Trimmer Call non-emergency contact if: you have any medication questions, your symptoms worsen, your pain is not controlled and your temperature is above 101 Follow-up/Referrals: Radames Toledo MD [Primary Care Provider] - 01/20/25 2:30 pm ( follow-up within 1 week Primary Care hospital follow up scheduled on 01/20/25 at 2:30 with Radames Toledo) Pedro Luis Merritt MD [Physician] - ( follow-up 2 to 3 weeks Office aware - will call pt to schedule) Diet: Heart Healthy Add Attending Provider Instructions: Ms. Cain, You were hospitalized after having chest pain while vacuuming. There were concerns that you had a blockage in your heart so you underwent a heart cath. Thankfully this heart catheterization did not show any severe blockages. However it is important that we optimize your cardiac health to prevent further blockages from forming. Dr. Merritt who performed your cardiac catheterization that your chest pain may be due to a component of vasospasm. For this reason amlodipine has been added as this medication helps to dilate the blood vessels. We are changing a lot of your blood pressure/heart medications around. Please monitor for any continual low heart rate and keep a log of your blood pressures at home. Please take your blood pressure at least once a day at different times of day and take that log to your follow-up appointments. If you are feeling lightheaded or dizzy or like you are going to pass out please call your provider to have your medications adjusted Medication changes: (there is a high likelihood this will continue to car changer the next few months) Metoprolol decreased to 12.5 mg daily Losartanhydrochlorothiazideplease STOP taking this New prescription: Amlodipine 5 mg daily take this every morning New prescription: Losartan 100 mg New prescription: Zetia, take this daily to help with your cholesterol New prescription: Nitroglycerin this is to be used as needed for chest pain, you can place one under your tongue every 5 minutes. If you are at the third dose you NEED to seek care at the hospital Please pickler helper the 137 mcq dose of your Synthroid and begin taking that. This is what you were given at the hospital. Increasing your exercise now that you are off the antibiotics will be good for your cardiac health. I also have attached information about a heart healthy diet. There are instructions below about restrictions for the next few days after cardiac catheterization procedure Activity: You can do normal everyday activities as your body allows. Take rest breaks if you feel tired. Do not overexert. Stop activity if you have pain, shortness of breath or feel dizzy. Follow-up appointments: Make an appointment with your primary care physician within one week of discharge. A copy of this summary will be sent to them. Every time you see your primary care physician, or any other doctor, bring your medication list, and a list of questions. CONTACT YOUR PRIMARY CARE PROVIDER if you experience any of the following: Shortness of breath or difficulty breathing Fevers or chills Feeling tired with normal activity or experiencing dizziness or fainting Difficulty following your treatment plan, or difficulty taking medications CALL 911 OR GO TO THE EMERGENCY DEPARTMENT if you experience any of the following: Severe abdominal pain or nausea/vomiting Severe chest pain, or chest pain that radiates (moves) to your jaw or arm Sudden, severe shortness of breath or difficulty breathing Thank you for allowing us to participate in your care. Addtl Chief Radiation Therapist Provider Instructions: ACTIVITY RECOMMENDATIONS: Excess manipulation of the wrist should be avoided for the next 24-48 hours. * No lifting over 2 pounds (approximately a 1/2 gallon of milk) with the utilized arm for 24 hours. * No strenuous activity such as bowling or tennis for 3 days. * Keep the site of the procedure covered with a bandage for 24 hours. *You may shower the day after the procedure. Do not take a tub bath or submerge the puncture site in water for the next 3 days. *Do not operate any motorized equipment for 3 days. SPECIAL CARE INSTRUCTIONS: The site may be slightly bruised and sore following your procedure. Should any of the following occur, contact the Dr. who performed your procedure. 1. Redness/inflammation, swelling, chills, or fever, or colored drainage at procedure site within 3-7 days after your procedure. 2. Coldness, discoloration, ongoing numbness, severe pain, or swelling. Expect mild tingling of hand and tenderness at the puncture site for up to three days. If this persists beyond three days, or other symptoms develop, notify the Dr. who performed your procedure. BLEEDING: If the procedure site on your wrist begins to bleed, do not panic 1. Place 1 or 2 fingers firmly just slightly above the insertion site to stop the bleeding. You may be able to feel your pulse as you hold pressure. 2. Lift your finger after 5 minutes to see if the bleeding has stopped. 3. Once the bleeding has stopped, gently wipe the wrist area clean with a bandage. * If the bleeding from your wrist does not stop after 10 minutes, or if there is a large amount of bleeding or spurting, call 911 (do not drive yourself to the hospital). SKIN IRRITATION: * You may experience some redness and/or swelling in the area where radiation was administered. If any skin irritation occurs, please contact your family physician. FOLLOW UP VISIT: Keep any scheduled doctor appointments. Pending Studies at Discharge: No Stand-Alone Forms: My [employer], Smoking Cessation Medications and DC Order Prescriptions: New nitroglycerin [Nitrostat] 0.4 mg Tablet, Sublingual 0.4 mg sublingual Q5M PRN (Reason: Chest Pain) Qty: 30 0RF Rx Instructions: max 3 doses, then seek ER care losartan 100 mg tablet 100 mg PO DAILY Qty: 30 0RF amlodipine 5 mg tablet 5 mg PO DAILY Qty: 30 0RF ezetimibe [Zetia] 10 mg tablet 10 mg PO DAILY Qty: 30 0RF Continued meclizine 25 mg tablet 25 mg PO TID PRN (Reason: dizziness) Qty: 90 5RF atorvastatin 80 mg tablet 80 mg PO QPM Qty: 90 3RF bupropion HCl 150 mg tablet extended release 24 hr 150 mg PO QAM Qty: 90 3RF Rx Instructions: take with the 300 mg pill. bupropion HCl 300 mg tablet extended release 24 hr 300 mg PO QAM Qty: 90 3RF Rx Instructions: Take with the 150 mg pill pantoprazole 40 mg tablet,delayed release (DR/EC) 40 mg PO BID Qty: 180 3RF famotidine 40 mg tablet 40 mg PO BID Qty: 180 3RF Rx Instructions: For recalcitrant reflux levothyroxine 137 mcg tablet 137 mcg PO DAILY Qty: 90 3RF ascorbate calcium (vitamin C) 500 mg capsule 500 mg PO QPM fluticasone propionate 50 mcg/actuation spray,suspension 2 spray intranasal DAILY PRN (Reason: nasal congestion) Qty: 15.8 11RF Rx Instructions: administer into each nostril albuterol sulfate [ProAir HFA] 90 mcg/actuation HFA aerosol inhaler 2 puff INH QID PRN (Reason: shortness of breath or wheezing) Qty: 8.5 5RF ondansetron 4 mg tablet,disintegrating 4 mg PO Q8H PRN (Reason: nausea and vomiting) Qty: 14 0RF multivitamin [Daily Multi-Vitamin] tablet 1 tab PO QPM calcium carbonate-vitamin D3 500 mg(1,250mg) -400 unit tablet 1 tab PO QPM mecobalamin (vitamin B12) 1,000 mcg tablet,disintegrating 1,000 mcg SL QPM echinacea 500 mg Capsule 500 mg PO QPM Rx Instructions: administer with meals aspirin 81 mg Capsule 81 mg PO QPM Changed metoprolol succinate 25 mg tablet extended release 24 hr 12.5 mg PO QAM Qty: 90 3RF Discontinued losartan-hydrochlorothiazide 100-25 mg tablet 1 tab PO QAM Qty: 90 3RF potassium chloride [Klor-Con 10] 10 mEq tablet extended release 20 meq PO BID Qty: 360 3RF trazodone 100 mg tablet 200 mg PO HS PRN (Reason: insomnia ) Rx Instructions: pt does not need immediately. No Action duloxetine 60 mg capsule,delayed release(DR/EC) 60 mg PO BID Discharge Orders: Discharge Order (Routine); Ordered 01/14/25 Ordered By: Lillie Dowd/Other Patient Handouts: Exercise for a Healthier Heart, DASH Plan Eat Heart Healthy Food, ED Heart Disease Education Admission Data Admit Date/Time: 01/13/25 21:04 Attending Provider: William Rizo Admit Provider: Tolu Bianchi Primary Care Provider: Radames Toledo Other Providers: Pedro Luis Merritt Other Interventions: Discharge Summary Assessment (RN) Last Done: 01/14/25 11:48 Hospital Stay Data Consultations 01/13/25 21:39 Consult Cardiology Routine Procedures Performed Operation Date: 01/14/25 10:00 Actual Procedures p Cineradiography w/Routine Exam - Pedro Luis Merritt MD p Cath, Left with Cors and Vent - Pedro Luis Merritt MD Summary: 1. Mild to moderate nonobstructive coronary artery disease - 30-40% ostial small circumflex, 40% high OM1 20-30% mid RCA 2. Elevated intracardiac filling pressure (LVEDP 21) Pending Results Patient Have Any Pending Studies at Discharge: No Discharge Instructions Given to Patient (Per Discharging Provider) Ms. Cain, You were hospitalized after having chest pain while vacuuming. There were concerns that you had a blockage in your heart so you underwent a heart cath. Thankfully this heart catheterization did not show any severe blockages. However it is important that we optimize your cardiac health to prevent further blockages from forming. Dr. Merritt who performed your cardiac catheterization that your chest pain may be due to a component of vasospasm. For this reason amlodipine has been added as this medication helps to dilate the blood vessels. We are changing a lot of your blood pressure/heart medications around. Please monitor for any continual low heart rate and keep a log of your blood pressures at home. Please take your blood pressure at least once a day at different times of day and take that log to your follow-up appointments. If you are feeling lightheaded or dizzy or like you are going to pass out please call your provider to have your medications adjusted Medication changes: (there is a high likelihood this will continue to car changer the next few months) Metoprolol decreased to 12.5 mg daily Losartanhydrochlorothiazideplease STOP taking this New prescription: Amlodipine 5 mg daily take this every morning New prescription: Losartan 100 mg New prescription: Zetia, take this daily to help with your cholesterol New prescription: Nitroglycerin this is to be used as needed for chest pain, you can place one under your tongue every 5 minutes. If you are at the third dose you NEED to seek care at the hospital Please pickler helper the 137 mcq dose of your Synthroid and begin taking that. This is what you were given at the hospital. Increasing your exercise now that you are off the antibiotics will be good for your cardiac health. I also have attached information about a heart healthy diet. There are instructions below about restrictions for the next few days after cardiac catheterization procedure Activity: You can do normal everyday activities as your body allows. Take rest breaks if you feel tired. Do not overexert. Stop activity if you have pain, shortness of breath or feel dizzy. Follow-up appointments: Make an appointment with your primary care physician within one week of discharge. A copy of this summary will be sent to them. Every time you see your primary care physician, or any other doctor, bring your medication list, and a list of questions. CONTACT YOUR PRIMARY CARE PROVIDER if you experience any of the following: Shortness of breath or difficulty breathing Fevers or chills Feeling tired with normal activity or experiencing dizziness or fainting Difficulty following your treatment plan, or difficulty taking medications CALL 911 OR GO TO THE EMERGENCY DEPARTMENT if you experience any of the following: Severe abdominal pain or nausea/vomiting Severe chest pain, or chest pain that radiates (moves) to your jaw or arm Sudden, severe shortness of breath or difficulty breathing Thank you for allowing us to participate in your care. Supervising Physician Co-Signing Physician Notes Attending Attestation & Discharge Note: Chart reviewed, discharge care plan d/w PATRICIA Yuen. I agree w/ the conley components of her discharge documentation. Of note - I did not perform a bedside visit or physical exam on day of discharge. 74yo female with history of HTN, hyperlipidemia, nontuberculosis mycobacterial infection, GERD, depression, and hypothyroidism who presented to [facility] after transfer from [facility] for concerns of NSTEMI. By report her chest pain started around 1:00 in the afternoon while she was vacuuming at her home. Upon presentation to [facility] her pain had resolved. After transfer to [facility] she had no further cardiac symptoms. Underwent cardiac catheterization by Dr Alfa Merritt - [facility] Cardiology - mild- moderate nonobstructive coronary artery disease was seen (see cath report above). Dr Merritt thought that perhaps she was experiencing coronary vasospasm as the cause of her symptoms thus she was initiated on amlodipine 5mg daily. Lipid profile showed LDL of 104. She should continue on lipitor 80mg daily + zetia 10mg daily along with aspirin. William Rizo MD Total Time Total Time Spent Total Time Spent (In Minutes): Time spent day of discharge 40 minutes including direct patient care, medication reconciliation, documentation, review of labs and images, and coordination of care. Coding Level of Care Code 21207 INP/OBS DISCH >30 MIN Diagnoses NSTEMI (non-ST elevated myocardial infarction) I21.4 HTN (hypertension) with goal to be determined I10 Hyperlipidemia E78.5 Hypothyroidism E03.9 Depression F32.9"
--- NOTE | 2025-01-14 14:28 | Electrocardiogram Report ---
Test Reason : Blood Pressure : */* mmHG Vent. Rate : 68 BPM Atrial Rate : 68 BPM P-R Int : 160 ms QRS Dur : 80 ms QT Int : 430 ms P-R-T Axes : 32 32 37 degrees QTcB Int : 457 ms Normal sinus rhythm Normal ECG No previous ECGs available Confirmed by Brandon Hightower ([id number]) on 01/14/2025 2:28:11 PM Referred By: Yesenia Patton Confirmed By: Brandon Hightower
[2025-01-14] MEDS ORDERED: ASPIRIN 81 MG ECTAB PO SCH (21:00)
== END 2025-01-14 14:35 | disposition home or self-care (01) | DRG 282 ==
LOC: SUATTDRO 21:04 → INTOOBSV 21:04 → 2E 21:19